=== PATIENT | female | born 1970 | race Caucasian/White ===

== ENCOUNTER → 2019-07-26 | Outpatient (CLI) | payer OTHER ==
[~2019-07-26] MED LIST: BARIUM SULFATE 60% 355 ML SUSP PO ONE
--- NOTE | 2019-07-26 10:01 | RAD ---
EXAM: SMALL BOWEL FOLLOW-THROUGH. HISTORY: Left upper quadrant pain. COMPARISON: None. FINDINGS: A photonics engineering technologist image was obtained. Barium contrast material was administered orally and followed in its course through the stomach, small bowel and proximal colon with fluoroscopy and plain radiographs. 8 fluoroscopic images were obtained. Fluoroscopy time 0.8 minutes. The photonics engineering technologist image demonstrates a nonobstructive bowel gas pattern. There are no distended small bowel loops. No strictures are seen. The small bowel fold pattern is unremarkable. The site of patient's symptoms corresponds with the anterior costal margin overlying the stomach and splenic flexure of the colon. No small bowel loops are in this region currently. Transit time was rapid at <15 minutes (normal <2 hours.) IMPRESSION: 1. No small bowel lesions are identified. No small bowel loops underlying the site of left upper quadrant symptoms. 2. Rapid transit time at <15 minutes. Electronically signed by: Trent Colindres MD (07/26/2019 9:58 AM) [facility]
== END | disposition home or self-care (01) ==
LOC: RAD 09:00
PROVIDERS: ATTEND Internal Medicine Gastroenterology
DX: R10.12 Left upper quadrant pain (principal)
CPT/HCPCS: 74250

== ENCOUNTER → 2019-09-01 | Day surgery (SDC) | payer OTHER ==
[~2019-09-01] MED LIST changes: -BARIUM SULFATE 60% 355 ML SUSP PO ONE; +IV RINGERS,LACTATED 1000ML 1,000 ML IV ONE; +IV RINGERS,LACTATED 1000ML 1,000 ML IV SCH; +LIDOCAINE 2% PF 5 ML VIAL. ONE; +PROPOFOL 20 ML IV ONE
[2019-09-01 10:10] VITALS: BP 112/63
--- NOTE | 2019-09-01 11:39 | HP ---
ADMIT DATE: 09/01/2019 REFERRING PHYSICIAN: Dr. Estrellita Colindres REASON: Left upper quadrant abdominal pain. HISTORY OF PRESENT ILLNESS: A 48-year-old female with past medical history significant for left upper quadrant pain, is seen with continued symptoms. There has been no change in weight. It is associated with nausea and bloating, is worse with changes in position. CT scan previously was nonrevealing. There has been no bleeding. The pain has been present for approximately 6 years. With the continued issues, she requests additional evaluation. PAST MEDICAL HISTORY: Left upper quadrant abdominal pain. ALLERGIES: PENICILLIN. MEDICATIONS: None. FAMILY HISTORY: Breast cancer in the grandmother, hypertension in brother and father. SOCIAL HISTORY: Significant for alcohol and caffeine use, but she is a nonsmoker. PAST SURGICAL HISTORY: Noncontributory. REVIEW OF SYSTEMS: Per records. PHYSICAL EXAMINATION: GENERAL: Reveals a well-nourished, well-developed female who is alert, cooperative, in no acute distress. VITAL SIGNS: Temperature 97.6, pulse 85, respiratory rate 18. HEENT: There is no decrease in her visual acuity issues. CARDIOVASCULAR: S1, S2 without S3, S4 or appreciable murmur. LUNGS: Clear to auscultation and percussion. ABDOMEN: Reveals left upper quadrant tenderness to deep palpation. EXTREMITIES: Reveals no cyanosis, clubbing or edema. IMPRESSION AND PLAN: Left upper quadrant abdominal pain with nausea, etiology is to be determined. With changes in position, hernia certainly was considered, but CT scan was unrevealing; therefore, recommended upper endoscopy to rule out ulcers, peptic ulcer disease. If this is negative, a small bowel series and colonoscopy would be pursued and a small bowel series has been done, which has been unrevealing. VINOD MOREJON MD DR: PAOLA/william JOB#: [id number] / [id number]
--- NOTE | 2019-09-05 10:07 | PATHOLOGY ---
[facility] Accession Number: [id number] . 01 Material submitted: . duodenum - DUODENAL BIOPSY . 01 Clinical history: . Abdominal pain. . 02 Diagnosis: Duodenal biopsies: - No significant pathologic abnormalities. . (JPM:kendell; 09/04/2019) S 09/04/2019 1609 Local . 02 Comment: Sections of the duodenal biopsy reveal multiple segments of duodenal and small intestine mucosa. Where best oriented, the mucosal villi show no sprue-like changes or significant inflammatory changes. There is no evidence of Whipple's disease. There is no evidence of malignancy. (JPM:kendell; 09/04/2019) . 02 Electronically signed: . Chad Montemayor MD, Pathologist NPI- [id number] . 01 Gross description: . Received in formalin labeled "Cr[place], [place], duodenal BX rule out Whipple's rule out celiac" is a 1.8 x 0.5 x 0.1 cm aggregate of menezes-brown mucosa fragments. The specimen is submitted in A1. ([facility]; 09/02/2019) [facility] 09/02/2019 1005 Local . 02 Pathologist provided ICD-10: R10.9 . 02 CPT . 522167 Specimen Comment: A courtesy copy of this report has been sent to [phone], [phone] Specimen Comment: [id number] Specimen Comment: Report sent to and Performed at: 01 [facility] [address], [place] [id number] MD Gabriel Aldrich MD Phone: [phone] Performed at: 02 [facility] [address] [place], [place] [id number] MD Chad Montemayor MD Phone: [phone]
== END ==
LOC: ENDOS 08:24
PROVIDERS: ATTEND Internal Medicine Gastroenterology
DX: R10.12 Left upper quadrant pain (principal); K29.50 Unspecified chronic gastritis without bleeding; F15.90 Other stimulant use, unspecified, uncomplicated; Z88.0 Allergy status to penicillin; Z72.89 Other problems related to lifestyle
CPT/HCPCS: 43239; 81025; 88305; J2001; J2704